=== PATIENT | female | born 1940 | race Caucasian/White ===

== ENCOUNTER 2016-07-02 10:45 | Emergency (ER) | payer MEDICARE, BC ==
[2016-07-02] MEDS ORDERED: Sodium Chloride 0.9% 10 ML Syringe FLUSH PRN (10:51)
[2016-07-02] MEDS ORDERED: Sodium Chloride 0.9% 1,000 ML IV SCH (11:00)
[2016-07-02 11:14] VITALS: BP 151/82
--- NOTE | 2016-07-02 11:19 | EDM.PDOC ---
ED HISTORY OF PRESENT ILLNESS - General Chief Complaint: Chest Pain Stated Complaint: Chest Pain Time Seen by Provider: 07/02/16 10:57 Source of Information: Reports: Patient, EMS, EMS notes reviewed, RN, RN notes reviewed History Limitations: Reports: No limitations - History of Present Illness INITIAL COMMENTS - FREE TEXT/NARRATIVE: Patient presents to the ED at [facility] via EMS with complaints of chest pain that started early this AM. On arrival, patient states her chest pain had completely resolved. She did receive 324mg of ASA per EMS. Patient states she also felt somewhat SOB. Currently, patient denies any symptoms. She did have a bout of sweating, which has also resolved. Patient is somewhat of a poor historian given her advanced dementia. 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, See EMS Report - Related Data Allergies/ADRs: Allergies Allergy/AdvReac Type Severity Reaction Status Date / Time No Known Allergies Allergy Verified 07/02/16 11:10 Home Meds: Home Meds ALPRAZolam [Xanax] 0.25 mg PO BEDTIME PRN 05/27/16 [History] Acetaminophen [Acetaminophen Extra Strength] 1,000 mg PO Q4H PRN 05/27/16 [ History] Albuterol Sulfate [Ventolin Hfa] 2 puff IH Q4H PRN 05/27/16 [History] Calcium Carbonate/Vitamin D3 [Calcium 500 + Vit D 200 Caplet] 1 each PO DAILY [History] Cetirizine [ZyrTEC] 10 mg PO DAILY PRN 05/27/16 [History] Cholecalciferol (Vitamin D3) [Vitamin D3] 1,000 unit PO DAILY 05/27/16 [History] Escitalopram [Lexapro] 20 mg PO DAILY 05/27/16 [History] Hydrocortisone [Hydrocortisone 1% Crm] 30 gm TOP BID PRN 05/27/16 [History] Ibuprofen 400 mg PO Q6H PRN 05/27/16 [History] Melatonin 3 mg PO BEDTIME PRN 05/27/16 [History] Memantine HCl [Namenda Xr] 28 mg PO DAILY 05/27/16 [History] Methylphenidate HCl [Ritalin] 10 mg PO QPM 05/27/16 [History] Methylphenidate HCl [Ritalin] 15 mg PO QAM 05/27/16 [History] Telmisartan/Hydrochlorothiazid [Micardis Hct 40-12.5 mg Tablet] 1 each PO DAILY 05/27/16 [History] Vitamin E 400 unit PO DAILY 05/27/16 [History] Acetaminophen/Diphenhydramine [Tylenol Pm Ex-Strength Caplet] 2 each PO BEDTIME PRN 07/02/16 [History] Past Medical History Psychiatric History: Reports: Alzheimers disease Social & Family History - Tobacco Use Smoking Status *Q: Current Every Day Smoker Years of Tobacco use: 50 Packs/Tins Daily: 0.3 - Recreational Drug Use Recreational Drug Use: No ED ROS GENERAL - Review of Systems Review Of Systems: ROS reveals no pertinent complaints other than HPI. ED EXAM, GENERAL - Physical Exam Exam: See Below Exam Limited By: No limitations General Appearance: alert, no apparent distress Respiratory/Chest: no respiratory distress, lungs clear, normal breath sounds Cardiovascular: normal peripheral pulses, regular rate, rhythm, no edema GI/Abdominal: normal bowel sounds, soft, non tender Extremities: normal inspection, non-tender Neurological: alert, oriented Skin Exam: Warm, Dry, Intact, Normal color, No rash EKG INTERPRETATION EKG Date: 07/02/16 Time: 10:38 Rhythm: NSR Rate (beats/min): 71 [place]: normal P-wave: present QRS: normal ST-T: normal QT: normal MN/PQ Interval: 0.11 Comparison: no change EKG Interpretation Comments: 1. NSR 2. Short MN Interval 3. ST junctional depression is non-specific Course - Vital Signs Last Recorded V/S: Last Vital Signs Temp 35.9 C 07/02/16 11:00 Pulse 67 07/02/16 11:00 Resp 16 07/02/16 11:00 BP 151/82 H 07/02/16 11:00 Pulse Ox 98 07/02/16 11:00 - Orders/Labs/Meds Orders: Active Orders 24 hr Category Date Time Status EKG 12 Lead [EKG Documentation Completion] [RC] STAT Care 07/02/16 10:50 Active Chest 2V [CR] Stat Exams 07/02/16 10:54 Taken Sodium Chloride 0.9% [Normal Saline] 1,000 ml Med 07/02/16 11:00 Active IV ASDIRECTED Sodium Chloride 0.9% [Saline Flush] Med 07/02/16 10:51 Active 10 ml FLUSH ASDIRECTED PRN Peripheral IV Insertion Adult [OM.PC] Routine Oth 07/02/16 10:51 Ordered Medication Orders Sodium Chloride (Normal Saline) 1,000 mls @ 30 mls/hr IV ASDIRECTED CARMEL Last Admin: 07/02/16 11:28 Dose: 30 mls/hr Sodium Chloride (Saline Flush) 10 ml FLUSH ASDIRECTED PRN PRN Reason: Keep Vein Open Labs: Laboratory Tests 07/02/16 07/02/16 Range/Units 10:50 10:50 WBC 6.2 (4.0-10.0) x10^3/uL RBC 4.62 (4.00-5.50) x10^6/uL Hgb 13.8 (12.0-16.0) g/dL Hct 42.0 (33.0-47.0) % MCV 90.9 (78.0-93.0) fL MCH 29.9 (26.0-32.0) pg MCHC 32.9 (32.0-36.0) g/dL RDW Coeff of Casey 13.3 (10.0-15.0) % Plt Count 221 (130-400) x10^3/uL Neut % (Auto) 56.1 (50.0-80.0) % Lymph % (Auto) 27.5 (25.0-50.0) % [place] % (Auto) 12.1 H (2.0-11.0) % Eos % (Auto) 3.7 (0.0-4.0) % Baso % (Auto) 0.6 (0.2-1.2) % Sodium 142 (136-145) mmol/L Potassium 3.9 (3.5-5.1) mmol/L Chloride 106 (98-107) mmol/L Carbon Dioxide 26 (21-32) mmol/L BUN 12 (7-18) mg/dL Creatinine 0.9 (0.55-1.02) mg/dL Est Cr Clr Drug Dosing 42.72 mL/min Estimated GFR (MDRD) > 60 Glucose 113 H (74-106) mg/dL Calcium 8.7 (8.5-10.1) mg/dL Corrected Calcium 8.94 (8.5-10.1) mg/dL Phosphorus 3.2 (2.6-4.7) mg/dL Magnesium 1.8 (1.8-2.4) mg/dL Total Bilirubin 0.3 (0.2-1.0) mg/dL AST 12 L (15-37) U/L ALT 14 (14-59) U/L Alkaline Phosphatase 83 (46-116) U/L Creatine Kinase 43 (26-192) U/L Troponin I < 0.017 (<=0.056) ng/mL Total Protein 6.9 (6.4-8.2) g/dL Albumin 3.7 (3.4-5.0) g/dL Globulin 3.2 Albumin/Globulin Ratio 1.16 Meds: Medications Generic Name Dose Route Start Last Admin Trade Name Freq PRN Reason Stop Dose Admin Sodium Chloride 1,000 mls @ 30 mls/hr 07/02/16 11:00 07/02/16 11:28 Normal Saline IV 30 mls/hr ASDIRECTED CARMEL Administration Sodium Chloride 10 ml 07/02/16 10:51 Saline Flush FLUSH ASDIRECTED PRN Keep Vein Open Departure - Departure Time of Disposition: 12:19 Disposition: Home, Self-Care 01 Condition: good Clinical Impression: Atypical chest pain Instructions: Nonspecific Chest Pain, [id number] Referrals: Kristine Rosario, [Primary Care Provider] - Forms: ED Department Discharge Additional Instructions: 1. Stay well hydrated and rest 2. Continue current medication; no changes necessary 3. See you primary care provider as symptoms warrant - Problem List Review Problem List Initiated/Reviewed/Updated: Yes - My Orders Last 24 Hours: My Active Orders 07/02/16 10:50 EKG 12 Lead [EKG Documentation Completion] [RC] STAT 07/02/16 10:51 Sodium Chloride 0.9% [Saline Flush] 10 ml FLUSH ASDIRECTED PRN Peripheral IV Insertion Adult [OM.PC] Routine 07/02/16 10:54 Chest 2V [CR] Stat 07/02/16 11:00 Sodium Chloride 0.9% [Normal Saline] 1,000 ml IV ASDIRECTED - Assessment/Plan Last 24 Hours: My Active Orders 07/02/16 10:50 EKG 12 Lead [EKG Documentation Completion] [RC] STAT 07/02/16 10:51 Sodium Chloride 0.9% [Saline Flush] 10 ml FLUSH ASDIRECTED PRN Peripheral IV Insertion Adult [OM.PC] Routine 07/02/16 10:54 Chest 2V [CR] Stat 07/02/16 11:00 Sodium Chloride 0.9% [Normal Saline] 1,000 ml IV ASDIRECTED
[2016-07-02 11:26] LABS: BASOPHILS PERCENT AUTO 0.6 % (0.2-1.2); EOSINOPHILS PERCENT AUTO 3.7 % (0.0-4.0); HEMOGLOBIN 13.8 g/dL (12.0-16.0); LYMPHOCYTES PERCENT AUTO 27.5 % (25.0-50.0); MEAN CORPUSCULAR HEMOGLOBIN 29.9 pg (26.0-32.0); MEAN CORPUSCULAR HGB CONC 32.9 g/dL (32.0-36.0); MEAN CORPUSCULAR VOLUME 90.9 fL (78.0-93.0); MONOCYTES PERCENT AUTO 12.1 % (2.0-11.0); NEUTROPHILS PERCENT AUTO 56.1 % (50.0-80.0); RDW CV 13.3 % (10.0-15.0); RED BLOOD CELL COUNT 4.62 x10^6/uL (4.00-5.50)
[2016-07-02 12:10] LABS: A/G RATIO 1.16; ALBUMIN 3.7 g/dL (3.4-5.0); ALKALINE PHOSPHATASE 83 U/L (46-116); BILIRUBIN TOTAL 0.3 mg/dL (0.2-1.0); CALCIUM 8.7 mg/dL (8.5-10.1); CHLORIDE,CL 106 mmol/L (98-107); CORRECTED CALCIUM 8.94 mg/dL (8.5-10.1); CREATININE 0.9 mg/dL (0.55-1.02); EST CRCL DRUG DOSING (CG) 42.72 mL/min; ESTIMATED GFR > 60; GLUCOSE RANDOM 113 mg/dL (74-106); MAGNESIUM 1.8 mg/dL (1.8-2.4); PHOSPHORUS 3.2 mg/dL (2.6-4.7); TROPONIN I < 0.017 ng/mL (<=0.056)
== END 2016-07-02 12:40 | disposition home or self-care (01) ==
LOC: VM.ED 10:45
DX: R07.89 Other chest pain (principal); G30.9 Alzheimer's disease, unspecified; F02.80 Dementia in other diseases classified elsewhere, unspecified severity, without behavioral disturbance, psychotic disturbance, mood disturbance, and anxiety; F17.210 Nicotine dependence, cigarettes, uncomplicated; Z79.899 Other long term (current) drug therapy
CPT/HCPCS: 71020; 80053; 82550; 83735; 84100; 84484; 85025; 99285; J7030; 99283-GF

== ENCOUNTER 2017-04-22 17:38 | Emergency (ER) | payer MEDICARE, BC ==
--- NOTE | 2017-04-22 18:00 | EDM.PDOC ---
<Jose EduardoChuck tadeo - Last Filed: 04/22/17 17:55> ED HPI GENERAL MEDICAL PROBLEM - General Stated Complaint: CODE GREEN Time Seen by Provider: 04/22/17 17:45 Source of Information: Reports: EMS History Limitations: Reports: Altered Mental Status - History of Present Illness INITIAL COMMENTS - FREE TEXT/NARRATIVE: Patient resides in a half-way and ambulance was called, he was considering her to the emergency room and she was taken straight to the CT scanner to rule out strokelike symptoms. There are no neurologic deficits to show that she was having an acute stroke at this time. - Related Data Allergies Allergy/AdvReac Type Severity Reaction Status Date / Time No Known Allergies Allergy Verified 04/22/17 18:29 Home Meds: Home Meds ALPRAZolam [Xanax] 0.25 mg PO BEDTIME PRN 05/27/16 [History] Acetaminophen [Acetaminophen Extra Strength] 1,000 mg PO Q6H PRN 05/27/16 [ History] Albuterol Sulfate [Ventolin Hfa] 2 puff IH Q4H PRN 05/27/16 [History] Calcium Carbonate/Vitamin D3 [Calcium 500 + Vit D 200 Caplet] 1 each PO DAILY [History] Cetirizine [ZyrTEC] 10 mg PO DAILY PRN 05/27/16 [History] Cholecalciferol (Vitamin D3) [Vitamin D3] 1,000 unit PO DAILY 05/27/16 [History] Escitalopram [Lexapro] 20 mg PO DAILY 05/27/16 [History] Hydrocortisone [Hydrocortisone 1% Crm] 1 dose TOP BID PRN 05/27/16 [History] Ibuprofen 400 mg PO Q6H PRN 05/27/16 [History] Melatonin 3 mg PO BEDTIME PRN 05/27/16 [History] Memantine HCl [Namenda Xr] 28 mg PO DAILY 05/27/16 [History] Methylphenidate HCl [Ritalin] 10 mg PO QPM 05/27/16 [History] Methylphenidate HCl [Ritalin] 15 mg PO QAM 05/27/16 [History] Telmisartan/Hydrochlorothiazid [Micardis Hct 40-12.5 mg Tablet] 1 each PO DAILY 05/27/16 [History] Vitamin E 400 unit PO DAILY 05/27/16 [History] Acetaminophen/Diphenhydramine [Tylenol Pm Ex-Strength Caplet] 2 each PO BEDTIME PRN 07/02/16 [History] Past Medical History Psychiatric History: Reports: Alzheimers Disease Social & Family History - Tobacco Use Smoking Status *Q: Current Every Day Smoker Years of Tobacco use: 50 Packs/Tins Daily: 0.3 - Recreational Drug Use Recreational Drug Use: No Course - Vital Signs Last Recorded V/S: Last Vital Signs Temp 36.3 C 04/22/17 18:00 Pulse 90 04/22/17 18:56 Resp 22 H 04/22/17 18:56 BP 115/62 04/22/17 18:56 Pulse Ox 100 04/22/17 18:56 - Orders/Labs/Meds Orders: Active Orders 24 hr Category Date Time Status EKG 12 Lead [EKG Documentation Completion] [RC] STAT Care 04/22/17 18:05 Ordered EKG Documentation Completion [RC] STAT Care 04/22/17 19:11 Ordered RT Aerosol Therapy [RC] ASDIRECTED Care 04/22/17 18:56 Active Chest 1V Frontal [CR] Stat Exams 04/22/17 19:11 Taken Head w Cont [CT] Stat Exams 04/22/17 17:34 Taken CULTURE BLOOD [BC] Stat Lab 04/22/17 20:00 Received CULTURE BLOOD [BC] Stat Lab 04/22/17 20:05 Received Blood Culture x2 Reflex Set [OM.PC] Stat Oth 04/22/17 19:11 Ordered Peripheral IV Insertion Adult [OM.PC] Routine Oth 04/22/17 19:11 Ordered Labs: Laboratory Tests 04/22/17 04/22/17 04/22/17 Range/Units 17:44 18:00 18:00 WBC 9.6 (4.0-10.0) x10^3/uL RBC 4.31 (4.00-5.50) x10^6/uL Hgb 13.0 (12.0-16.0) g/dL Hct 40.2 (33.0-47.0) % MCV 93.3 H (78.0-93.0) fL MCH 30.2 (26.0-32.0) pg MCHC 32.3 (32.0-36.0) g/dL RDW Coeff of Casey 13.7 (10.0-15.0) % Plt Count 193 (130-400) x10^3/uL Neut % (Auto) 67.9 (50.0-80.0) % Lymph % (Auto) 15.3 L (25.0-50.0) % [place] % (Auto) 15.7 H (2.0-11.0) % Eos % (Auto) 0.7 (0.0-4.0) % Baso % (Auto) 0.4 (0.2-1.2) % PT (9.8-11.8) SEC INR (2.0-3.5) D-Dimer, Quantitative (<=0.58) mg/LFEU Sodium 138 (136-145) mmol/L Potassium 3.6 (3.5-5.1) mmol/L Chloride 101 (98-107) mmol/L Carbon Dioxide 23 (21-32) mmol/L BUN 11 (7-18) mg/dL Creatinine 0.9 (0.55-1.02) mg/dL Est Cr Clr Drug Dosing 43.99 mL/min Estimated GFR (MDRD) > 60 Glucose 102 (74-106) mg/dL POC Glucose 98 (74-106) mg/dL Lactic Acid (0.4-2.0) mmol/L Calcium 8.9 (8.5-10.1) mg/dL Corrected Calcium 9.22 (8.5-10.1) mg/dL Phosphorus (2.6-4.7) mg/dL Magnesium (1.8-2.4) mg/dL Total Bilirubin 0.3 (0.2-1.0) mg/dL AST 12 L (15-37) U/L ALT 12 L (14-59) U/L Alkaline Phosphatase 78 (46-116) U/L Creatine Kinase (26-192) U/L Creatine Kinase Index CK-MB (CK-2) Troponin I (<=0.056) ng/mL C-Reactive Protein (<=0.9) mg/dL NT-Pro-B Natriuret Pep (<=450) pg/mL Total Protein 7.3 (6.4-8.2) g/dL Albumin 3.6 (3.4-5.0) g/dL Globulin 3.7 Albumin/Globulin Ratio 0.97 Ethyl Alcohol (0-3) mg/dL 10/22/17 10/22/17 10/22/17 Range/Units 18:00 18:00 18:00 WBC (4.0-10.0) x10^3/uL RBC (4.00-5.50) x10^6/uL Hgb (12.0-16.0) g/dL Hct (33.0-47.0) % MCV (78.0-93.0) fL MCH (26.0-32.0) pg MCHC (32.0-36.0) g/dL RDW Coeff of Casey (10.0-15.0) % Plt Count (130-400) x10^3/uL Neut % (Auto) (50.0-80.0) % Lymph % (Auto) (25.0-50.0) % [place] % (Auto) (2.0-11.0) % Eos % (Auto) (0.0-4.0) % Baso % (Auto) (0.2-1.2) % PT 9.9 (9.8-11.8) SEC INR 0.9 L (2.0-3.5) D-Dimer, Quantitative 0.46 (<=0.58) mg/LFEU Sodium (136-145) mmol/L Potassium (3.5-5.1) mmol/L Chloride (98-107) mmol/L Carbon Dioxide (21-32) mmol/L BUN (7-18) mg/dL Creatinine (0.55-1.02) mg/dL Est Cr Clr Drug Dosing mL/min Estimated GFR (MDRD) Glucose (74-106) mg/dL POC Glucose (74-106) mg/dL Lactic Acid (0.4-2.0) mmol/L Calcium (8.5-10.1) mg/dL Corrected Calcium (8.5-10.1) mg/dL Phosphorus 2.6 (2.6-4.7) mg/dL Magnesium 1.8 (1.8-2.4) mg/dL Total Bilirubin (0.2-1.0) mg/dL AST (15-37) U/L ALT (14-59) U/L Alkaline Phosphatase (46-116) U/L Creatine Kinase 85 (26-192) U/L Creatine Kinase Index TNP CK-MB (CK-2) TNP Troponin I < 0.017 (<=0.056) ng/mL C-Reactive Protein 1.1 H (<=0.9) mg/dL NT-Pro-B Natriuret Pep 387 (<=450) pg/mL Total Protein (6.4-8.2) g/dL Albumin (3.4-5.0) g/dL Globulin Albumin/Globulin Ratio Ethyl Alcohol 155 H (0-3) mg/dL 04/22/17 Range/Units 18:00 WBC (4.0-10.0) x10^3/uL RBC (4.00-5.50) x10^6/uL Hgb (12.0-16.0) g/dL Hct (33.0-47.0) % MCV (78.0-93.0) fL MCH (26.0-32.0) pg MCHC (32.0-36.0) g/dL RDW Coeff of Casey (10.0-15.0) % Plt Count (130-400) x10^3/uL Neut % (Auto) (50.0-80.0) % Lymph % (Auto) (25.0-50.0) % [place] % (Auto) (2.0-11.0) % Eos % (Auto) (0.0-4.0) % Baso % (Auto) (0.2-1.2) % PT (9.8-11.8) SEC INR (2.0-3.5) D-Dimer, Quantitative (<=0.58) mg/LFEU Sodium (136-145) mmol/L Potassium (3.5-5.1) mmol/L Chloride (98-107) mmol/L Carbon Dioxide (21-32) mmol/L BUN (7-18) mg/dL Creatinine (0.55-1.02) mg/dL Est Cr Clr Drug Dosing mL/min Estimated GFR (MDRD) Glucose (74-106) mg/dL POC Glucose (74-106) mg/dL Lactic Acid 4.6 H (0.4-2.0) mmol/L Calcium (8.5-10.1) mg/dL Corrected Calcium (8.5-10.1) mg/dL Phosphorus (2.6-4.7) mg/dL Magnesium (1.8-2.4) mg/dL Total Bilirubin (0.2-1.0) mg/dL AST (15-37) U/L ALT (14-59) U/L Alkaline Phosphatase (46-116) U/L Creatine Kinase (26-192) U/L Creatine Kinase Index CK-MB (CK-2) Troponin I (<=0.056) ng/mL C-Reactive Protein (<=0.9) mg/dL NT-Pro-B Natriuret Pep (<=450) pg/mL Total Protein (6.4-8.2) g/dL Albumin (3.4-5.0) g/dL Globulin Albumin/Globulin Ratio Ethyl Alcohol (0-3) mg/dL Meds: Medications Discontinued Medications Generic Name Dose Route Start Last Admin Trade Name Freq PRN Reason Stop Dose Admin Albuterol/Ipratropium 3 ml 04/22/17 18:56 04/22/17 18:58 Duoneb 3.0-0.5 Mg/3 Ml NEB 04/22/17 18:57 3 ml ONETIME ONE Administration Azithromycin 500 mg 04/22/17 20:36 04/22/17 20:47 Zithromax PO 04/22/17 20:37 500 mg ONETIME ONE Administration Methylprednisolone Sodium Succinate 125 mg 04/22/17 19:13 04/22/17 19:21 Solu-Medrol IV 04/22/17 19:14 125 mg ONETIME ONE Administration Sodium Chloride 10 ml 04/22/17 19:10 Saline Flush FLUSH ASDIRECTED PRN Keep Vein Open Departure - Departure Disposition: DC/Tfer to Other 70 Clinical Impression: Alcohol intoxication, COPD exacerbation - Discharge Information Instructions: Chronic Obstructive Pulmonary Disease, [id number] Referrals: Kristine Rosario DO [Primary Care Provider] - Forms: ED Department Discharge Additional Instructions: Prednisone 40mg daily for 6 days total Azithromycin 250mg once daily until gone Follow-up in clinic in 7-10 days - My Orders Last 24 Hours: My Active Orders 04/22/17 19:11 EKG Documentation Completion [RC] STAT Chest 1V Frontal [CR] Stat Blood Culture x2 Reflex Set [OM.PC] Stat Peripheral IV Insertion Adult [OM.PC] Routine 04/22/17 20:00 CULTURE BLOOD [BC] Stat 04/22/17 20:05 CULTURE BLOOD [BC] Stat - Assessment/Plan Last 24 Hours: My Active Orders 04/22/17 19:11 EKG Documentation Completion [RC] STAT Chest 1V Frontal [CR] Stat Blood Culture x2 Reflex Set [OM.PC] Stat Peripheral IV Insertion Adult [OM.PC] Routine 04/22/17 20:00 CULTURE BLOOD [BC] Stat 04/22/17 20:05 CULTURE BLOOD [BC] Stat <Andrea Díaz W - Last Filed: 04/23/17 04:14> ED HPI GENERAL MEDICAL PROBLEM - General Source of Information: Reports: Patient, EMS, Family - History of Present Illness INITIAL COMMENTS - FREE TEXT/NARRATIVE: Staff at [facility] states that the pt. was experiencing confusion and decreased level of consciousness. Pt. family states that the pt. has a history of ETOH abuse and recently "fell off the wagon" and started drinking again. She denies any trauma or falls. Staff states that pt. has been experiencing increased cough and chest congestion. She has not been experiencing any fever or chills. Onset: Today Location: Reports: Generalized ED ROS GENERAL - Review of Systems Review Of Systems: See Below Constitutional: Reports: No Symptoms HEENT: Reports: No Symptoms Respiratory: Reports: Shortness of Breath, Wheezing, Cough Cardiovascular: Reports: No Symptoms Endocrine: Reports: No Symptoms GI/Abdominal: Reports: No Symptoms : Reports: No Symptoms Musculoskeletal: Reports: No Symptoms Skin: Reports: No Symptoms Neurological: Reports: Change in Speech, Gait Disturbance Psychiatric: Reports: No Symptoms Hematologic/Lymphatic: Reports: No Symptoms Immunologic: Reports: No Symptoms ED EXAM, GENERAL - Physical Exam Exam: See Below General Appearance: Alert, WD/WN, No Apparent Distress Eye Exam: Bilateral Eye: EOMI, Normal Inspection, PERRL Ears: Normal External Exam, Normal Canal, Hearing Grossly Normal, Normal TMs Nose: Normal Inspection, Normal Mucosa, No Blood Throat/Mouth: Normal Inspection, Normal Lips, Normal Teeth, Normal Gums, Normal Oropharynx, Normal Voice, No Airway Compromise Head: Atraumatic, Normocephalic Neck: Normal Inspection, Supple, Non-Tender, Full Range of Motion Respiratory/Chest: No Respiratory Distress, Lungs Clear, Normal Breath Sounds, No Accessory Muscle Use, Chest Non-Tender Cardiovascular: Normal Peripheral Pulses, Regular Rate, Rhythm, No Edema Peripheral Pulses: 3+: Radial (L), Radial (R) GI/Abdominal: Normal Bowel Sounds, Soft, Non-Tender, No Organomegaly, No Distention Back Exam: Normal Inspection, Full Range of Motion Extremities: Normal Inspection, Normal Range of Motion, Non-Tender, Normal Capillary Refill Neurological: Alert, Oriented, CN II-XII Intact, Normal Cognition, Normal Gait, Normal Reflexes, No Motor/Sensory Deficits Psychiatric: Normal Affect, Normal Mood Skin Exam: Warm, Dry, Intact, Normal Color, No Rash Lymphatic: No Adenopathy Course - Radiology Interpretation Free Text/Narrative:: CT brain was negative - Re-Assessments/Exams Free Text/Narrative Re-Assessment/Exam: 04/23/17 04:10 NIH stroke scale performed. Score was 2, based on slurred speech and other side effects of alcohol intoxication. No other focal neuro findings noted. Pt. was given an duoneb breathing treatment and wheezing improved signficantly. Departure - Departure Time of Disposition: 21:01 Condition: Good - Problem List & Annotations (1) COPD (chronic obstructive pulmonary disease) SNOMED Code(s): 22375201 Code(s): J44.9 - CHRONIC OBSTRUCTIVE PULMONARY DISEASE, UNSPECIFIED Status : Acute (2) Alcohol intoxication SNOMED Code(s): 76608747 Code(s): F10.929 - ALCOHOL USE, UNSPECIFIED WITH INTOXICATION, UNSPECIFIED Status: Acute - Assessment/Plan Assessment:: COPD exacerbation acute alcohol intoxication Plan: Prednisone 40mg daily for 6 days total Azithromycin 250mg once daily until gone Follow-up in clinic in 7-10 days
[2017-04-22 18:42] LABS: CHLORIDE,CL 101 mmol/L (98-107); SODIUM,NA 138 mmol/L (136-145)
[2017-04-22] MEDS ORDERED: Albuterol/Ipratropium 3.0-0.5 MG/3 ML Neb Soln NEB ONE (18:56)
[2017-04-22] MEDS ORDERED: Sodium Chloride 0.9% 10 ML Syringe FLUSH PRN (19:10)
[2017-04-22 19:13] VITALS: BP 115/62
[2017-04-22] MEDS ORDERED: methylPREDNISolone Sodium Succinate 125 MG/2 ML SDV IV ONE (19:13)
[2017-04-22] MEDS ORDERED: Azithromycin 250 MG Tab PO ONE (20:36)
== END 2017-04-22 21:01 | disposition other institution (70) ==
LOC: VM.ED 17:38
DX: J44.1 Chronic obstructive pulmonary disease with (acute) exacerbation (principal); F10.120 Alcohol abuse with intoxication, uncomplicated; F17.210 Nicotine dependence, cigarettes, uncomplicated; Z79.899 Other long term (current) drug therapy
CPT/HCPCS: 36415; 70450; 71010; 80053; 82550; 82962; 83605; 83735; 83880; 84100; 84484; 85025; 85379; 85610; 86140; 87040; 87804; 94640; 96374; 99285; A9270; G0480; J2930; 70460; 99284-GF